=== PATIENT | female | born 2000 | race Caucasian/White ===

== ENCOUNTER 2022-09-27 09:10 | Emergency (ER) | payer SELFPAY ==
[2022-09-27] MEDS ORDERED: Lactated Ringers 1,000 ML IV SCH (09:30)
[2022-09-27] MEDS ORDERED: Ondansetron 4 MG/2 ML SDV IVPUSH ONE (09:31)
[2022-09-27 10:23] LABS: CARBON DIOXIDE,CO2 25.5 mmol/L (21.0-32.0); POTASSIUM,K 3.9 mmol/L (3.5-5.1)
== END 2022-09-27 12:49 | disposition home or self-care (01) ==
LOC: MW.ED 09:10
DX: O21.9 Vomiting of pregnancy, unspecified (principal); O99.511 Diseases of the respiratory system complicating pregnancy, first trimester; J45.909 Unspecified asthma, uncomplicated; Z79.899 Other long term (current) drug therapy; Z3A.01 Less than 8 weeks gestation of pregnancy
CPT/HCPCS: 36415; 80053; 81003; 85025; 96361; 96374; 99284; J2405; J7120

== ENCOUNTER 2022-11-02 13:32 | Emergency (ER) | payer MEDICAID, OTHER ==
[2022-11-02] MEDS ORDERED: Sodium Chloride 0.9% 1,000 ML IV ONE (13:54)
[2022-11-02] MEDS ORDERED: Ondansetron 4 MG/2 ML SDV IVPUSH ONE (14:00)
[2022-11-02 14:42] LABS: CARBON DIOXIDE,CO2 25.5 mmol/L (21.0-32.0); POTASSIUM,K 3.7 mmol/L (3.5-5.1)
[2022-11-02 15:12] LABS: CORONAVIRUS COVID-19 NAA NEGATIVE (NEGATIVE); INFLUENZA A NAA NEGATIVE (NEGATIVE); INFLUENZA B NAA NEGATIVE (NEGATIVE)
== END 2022-11-02 15:36 | disposition home or self-care (01) ==
LOC: MW.ED 13:32
DX: O99.011 Anemia complicating pregnancy, first trimester (principal); O99.511 Diseases of the respiratory system complicating pregnancy, first trimester; J32.9 Chronic sinusitis, unspecified; Z20.822 Contact with and (suspected) exposure to COVID-19; Z3A.11 11 weeks gestation of pregnancy
CPT/HCPCS: 0240U; 36415; 80053; 81003; 85025; 87651; 96361; 96374; 99284; J2405; J7030

== ENCOUNTER 2023-04-07 11:53 | Emergency (ER) | payer BC, MEDICAID ==
[2023-04-07] MEDS ORDERED: Sodium Chloride 0.9% 1,000 ML IV STA ×2 (13:03→13:42)
[2023-04-07] MEDS ORDERED: Metoclopramide 10 MG/2 ML SDV IVPUSH STA (13:04)
[2023-04-07] MEDS ORDERED: diphenhydrAMINE 50 MG/ML SDV IVPUSH STA (13:04)
[2023-04-07 13:22] LABS: APPEARANCE,URINE CLOUDY; BILIRUBIN,URINE NEGATIVE (NEGATIVE); COLOR,URINE YELLOW; GLUCOSE,URINE NEGATIVE (NEGATIVE); KETONES,URINE 15 mg/dL (NEGATIVE); LEUKOCYTE ESTERASE,URINE LARGE (NEGATIVE); NITRITE,URINE NEGATIVE (NEGATIVE); OCCULT BLOOD,URINE NEGATIVE (NEGATIVE); PH,URINE 7.5 (5.0-8.0); PROTEIN,URINE NEGATIVE (NEGATIVE)
[2023-04-07 13:51] LABS: BACTERIA,URINE 3+ (NEGATIVE); EPITHELIAL CELLS,URINE FEW (NONE-FEW); RBC,URINE NONE SEEN (0-2/HPF); WBC,URINE 20-30 (0-5/HPF)
[2023-04-07] MEDS ORDERED: cefTRIAXone 1 GM in Sodium Chloride 0.9% 50 ML IV STA (14:09)
== END 2023-04-07 16:05 | disposition home or self-care (01) ==
LOC: MW.ED 11:53
DX: O21.0 Mild hyperemesis gravidarum (principal); O23.43 Unspecified infection of urinary tract in pregnancy, third trimester; N39.0 Urinary tract infection, site not specified; J45.909 Unspecified asthma, uncomplicated; Z3A.34 34 weeks gestation of pregnancy
CPT/HCPCS: 81001; 87086; 96361; 96365; 96375; 99284; J0696; J1200; J2765; J3490; J7030

== ENCOUNTER 2023-05-12 00:18 | Inpatient (IN) | payer BC ==
[2023-05-12] MEDS ORDERED: Carboprost Tromethamine 250 MCG/1 mL Vial IM PRN (02:43)
[2023-05-12] MEDS ORDERED: Lidocaine 1% 50 ML MDV INJECT PRN (02:43)
[2023-05-12] MEDS ORDERED: Misoprostol 200 MCG Tab PO PRN (02:43)
[2023-05-12] MEDS ORDERED: Water For Irrigation,Sterile 1,000 ML Container IRR PRN (02:43)
[2023-05-12] MEDS ORDERED: Tranexamic Acid IN NACL,ISO-OS 1,000 MG in Premix Bag 1 BAG IV PRN ×2 (02:43)
[2023-05-12] MEDS ORDERED: Sodium Chloride 0.9% 10 ML Syringe FLUSH PRN (02:43)
[2023-05-12] MEDS ORDERED: Ondansetron 4 MG/2 ML SDV IVPUSH PRN (02:43)
[2023-05-12] MEDS ORDERED: Sodium Chloride 0.9% 2.5 ML Syringe FLUSH PRN (02:43)
[2023-05-12] MEDS ORDERED: Misoprostol 25 MCG (1/4 of 100 MCG) Tab VAG PRN (02:43)
[2023-05-12] MEDS ORDERED: Sodium Chloride 0.9% 20 ML SDV IV PRN (02:43)
[2023-05-12] MEDS ORDERED: Methylergonovine 0.2 MG/1 ML Amp IM PRN (02:43)
[2023-05-12] MEDS ORDERED: Terbutaline 1 MG/ML SDV SUBCUT PRN (02:43)
[2023-05-12] MEDS ORDERED: Butorphanol 1 MG/ML SDV IVPUSH PRN (02:43)
[2023-05-12] MEDS ORDERED: Oxytocin/0.9 % Sodium Chloride 30 UNIT/500 ML BAG IV SCH ×2 (02:45)
[2023-05-12] MEDS: Misoprostol 25 MCG (1/4 of 100 MCG) Tab PO SCH ×3 (04:03→15:56)
[2023-05-12 04:26] LABS: HEMATOCRIT 33.3 % (37.0-47.0); HEMOGLOBIN 10.9 g/dL (12.0-16.0); MEAN CORPUSCULAR HEMOGLOBIN 23.6 pg (28.0-32.0); MEAN CORPUSCULAR HGB CONC 32.7 g/dL (32.0-36.0); MEAN CORPUSCULAR VOLUME 72.1 fL (83.0-99.0); MEAN PLATELET VOLUME 9.6 fL (9.4-12.3); PLATELET COUNT,PLT 194 K/uL (150-400); RED BLOOD CELL COUNT 4.62 M/uL (4.10-5.30); WHITE BLOOD CELL COUNT,WBC 9.85 K/uL (3.9-11.3)
[2023-05-12] MEDS ORDERED: ePHEDrine 50 MG/ML SDV IVPUSH PRN ×2 (07:33)
[2023-05-12] MEDS ORDERED: Phenylephrine HCl 0.5 MG/5 ML AMP IVPUSH PRN (07:33)
[2023-05-12] MEDS ORDERED: Ropivacaine HCl/PF 400 MG in Premix Bag 1 BAG EPIDUR SCH (07:45)
[2023-05-12] MEDS: Misoprostol 25 MCG (1/4 of 100 MCG) Tab VAG PRN ×2 (11:06→15:56)
[2023-05-12] MEDS ORDERED: Nalbuphine 10 MG/0.5 ML Syringe IVPUSH PRN ×2 (13:34→17:52)
[2023-05-12] MEDS: Nalbuphine 10 MG/0.5 ML Syringe IVPUSH PRN ×2 (14:08→18:05)
[2023-05-12] MEDS: Lactated Ringers 1,000 ML IV SCH (17:28)
[2023-05-13] MEDS: Lactated Ringers 1,000 ML IV SCH ×2 (08:40→15:30)
[2023-05-13] MEDS ORDERED: Bupivacaine 0.25% 10 ML SDV ONE (17:53)
[2023-05-13] MEDS ORDERED: fentaNYL 100 MCG/2 ML SDV ONE (17:53)
[2023-05-13] MEDS ORDERED: Lanolin 100% Cream 7 GM Tube TOP PRN (20:47)
[2023-05-13] MEDS ORDERED: Acetaminophen/oxyCODONE 325-5 MG Tab PO PRN ×2 (20:47→22:54)
[2023-05-13] MEDS ORDERED: Bisacodyl 10 MG Supp RECTAL PRN (20:47)
[2023-05-13] MEDS ORDERED: diphenhydrAMINE 50 MG/ML SDV IVPUSH PRN ×2 (20:47→22:54)
[2023-05-13] MEDS ORDERED: ceFAZolin 2 GM in Sodium Chloride 0.9% 50 ML IV ONE (20:47)
[2023-05-13] MEDS ORDERED: Oxytocin 10 Units/1 ML SDV IM PRN (20:47)
[2023-05-13] MEDS ORDERED: Misoprostol 200 MCG Tab RECTAL PRN ×2 (20:47)
[2023-05-13] MEDS ORDERED: Methylergonovine 0.2 MG/1 ML Amp IM PRN (20:47)
[2023-05-13] MEDS ORDERED: Citric Acid/Sodium Citrate Solution 30 ML Cup PO ONE (20:47)
[2023-05-13] MEDS ORDERED: Ondansetron 4 MG/2 ML SDV IVPUSH PRN ×3 (20:47→22:54)
[2023-05-13] MEDS ORDERED: Dexamethasone 4 MG/ML 5 ML MDV ONE (20:50)
[2023-05-13] MEDS ORDERED: Bupivacaine 0.5% 10 ML SDV ONE (20:50)
[2023-05-13] MEDS ORDERED: Ketorolac 30 MG/ML SDV ONE (20:50)
[2023-05-13] MEDS ORDERED: Oxytocin 10 Units/1 ML SDV ONE ×2 (20:50→22:06)
[2023-05-13] MEDS ORDERED: Ondansetron 4 MG/2 ML SDV ONE (20:50)
[2023-05-13] MEDS ORDERED: ceFAZolin 1 GM Vial ONE (20:51)
[2023-05-13] MEDS ORDERED: Morphine PF 10 MG/10 ML SDV ONE (20:53)
[2023-05-13] MEDS ORDERED: Water For Injection, Sterile 20 ML ONE (20:53)
[2023-05-13] MEDS ORDERED: Oxytocin/0.9 % Sodium Chloride 30 UNIT/500 ML BAG IV SCH ×2 (21:00)
[2023-05-13] MEDS ORDERED: Lactated Ringers 1,000 ML IV SCH (21:00)
[2023-05-13] MEDS ORDERED: Bupivacaine 0.5% 30 ML SDV ONE (21:01)
[2023-05-13] MEDS ORDERED: Non-Formulary Medication 1 Each (Albuterol Sulfate [Proair Digihaler] 90 MCG Aer.Pw.Bas) PO PRN (21:02)
[2023-05-13] MEDS ORDERED: Lidocaine 2% 5 ML SDV ONE (21:23)
[2023-05-13] MEDS ORDERED: Propofol 200 MG/20 ML SDV ONE (21:33)
[2023-05-13] MEDS ORDERED: Ropivacaine 0.5% 5 MG/ML 30 ML SDV ONE (21:57)
[2023-05-13] MEDS ORDERED: HYDROmorphone 1 MG/ML Syringe IVPUSH PRN (22:54)
[2023-05-13] MEDS ORDERED: fentaNYL 100 MCG/2 ML SDV IVPUSH PRN (22:54)
[2023-05-13] MEDS ORDERED: Metoclopramide 10 MG/2 ML SDV IVPUSH PRN (22:54)
[2023-05-13] MEDS ORDERED: fentaNYL 50 MCG/ML SDV IVPUSH PRN (22:54)
[2023-05-13] MEDS ORDERED: Morphine 2 MG/ML SYRINGE IVPUSH PRN (22:54)
[2023-05-13] MEDS ORDERED: Albuterol 0.083% 2.5 MG/3 ML Neb Soln NEB PRN (22:54)
[2023-05-13] MEDS ORDERED: Naloxone 0.4 MG/ML SDV IVPUSH PRN (22:54)
[2023-05-13] MEDS ORDERED: droPERidol 5 MG/2 ML SDV IVPUSH PRN (22:54)
[2023-05-14] MEDS: Ketorolac 30 MG/ML SDV IVPUSH SCH ×6 (04:44→23:00)
[2023-05-14 07:21] LABS: BASOPHILS ABSOLUTE AUTO 0.03 K/uL (0.00-0.20); BASOPHILS PERCENT AUTO 0.1 % (0.0-1.0); HEMATOCRIT 28.2 % (37.0-47.0); HEMOGLOBIN 9.5 g/dL (12.0-16.0); IMMATURE GRAN ABSOLUTE AUTO 0.12 K/uL (0.00-0.05); IMMATURE GRAN PERCENT AUTO 0.6 % (0.0-0.4); LYMPHOCYTES ABSOLUTE AUTO 0.97 K/uL (1.00-4.80); LYMPHOCYTES PERCENT AUTO 4.6 % (24.0-44.0); MEAN CORPUSCULAR HEMOGLOBIN 24.1 pg (28.0-32.0); MEAN CORPUSCULAR HGB CONC 33.7 g/dL (32.0-36.0); MEAN CORPUSCULAR VOLUME 71.6 fL (83.0-99.0); MEAN PLATELET VOLUME 11.4 fL (9.4-12.3); MONOCYTES ABSOLUTE AUTO 0.39 K/uL (0.00-0.80); MONOCYTES PERCENT AUTO 1.9 % (0.0-8.0); NEUTROPHILS ABSOLUTE AUTO 19.53 K/uL (1.80-7.70); NEUTROPHILS PERCENT AUTO 92.8 % (41.0-71.0); PLATELET COUNT,PLT 175 K/uL (150-400); RED BLOOD CELL COUNT 3.94 M/uL (4.10-5.30); WHITE BLOOD CELL COUNT,WBC 21.04 K/uL (3.9-11.3)
[2023-05-14 08:43] LABS: PH,UMBILICAL VENOUS 7.356 (7.25-7.45)
[2023-05-14] MEDS: Docusate Sodium 100 MG Cap PO SCH ×2 (10:02→23:01)
[2023-05-14] MEDS: Ferrous Sulfate 325 MG Tab PO SCH (18:01)
[2023-05-15] MEDS: Acetaminophen/oxyCODONE 325-5 MG Tab PO PRN ×2 (04:25→23:03)
[2023-05-15] MEDS: Ibuprofen 800 MG Tab PO PRN ×2 (09:09→18:29)
[2023-05-15] MEDS: Prenatal Multivitamin with Calcium/Folic Acid/Iron Tab PO SCH (09:10)
[2023-05-15] MEDS: Ferrous Sulfate 325 MG Tab PO SCH ×3 (09:10→18:25)
[2023-05-15] MEDS: Docusate Sodium 100 MG Cap PO SCH ×3 (09:13→20:44)
[2023-05-16] MEDS: Acetaminophen/oxyCODONE 325-5 MG Tab PO PRN ×2 (06:53→16:52)
[2023-05-16] MEDS: Ferrous Sulfate 325 MG Tab PO SCH ×4 (09:43→18:08)
[2023-05-16] MEDS: Docusate Sodium 100 MG Cap PO SCH ×2 (09:44→20:34)
[2023-05-16] MEDS: Prenatal Multivitamin with Calcium/Folic Acid/Iron Tab PO SCH (09:44)
[2023-05-16] MEDS: Ibuprofen 800 MG Tab PO PRN ×2 (13:34→21:38)
[2023-05-17] MEDS: Acetaminophen/oxyCODONE 325-5 MG Tab PO PRN (01:56)
[2023-05-17] MEDS: Ibuprofen 800 MG Tab PO PRN ×2 (08:03→17:50)
[2023-05-17] MEDS: Prenatal Multivitamin with Calcium/Folic Acid/Iron Tab PO SCH (10:23)
[2023-05-17] MEDS: Docusate Sodium 100 MG Cap PO SCH ×2 (10:23→20:29)
[2023-05-17] MEDS: Ferrous Sulfate 325 MG Tab PO SCH ×3 (10:23→17:50)
== END 2023-05-17 21:55 | disposition home or self-care (01) | DRG 540 ==
LOC: MW.OBCHECK 00:18 → MW.OB 00:20 → MW.OBCHECK 02:43 → MW.OB 02:43 → OBSVTOIN 05-13 21:34 → MW.OB 05-14 03:01
PROVIDERS: ADMIT Obstetrics & Gynecology Obstetrics; ATTEND Obstetrics & Gynecology Obstetrics
PROC: 10D00Z1 Extraction of Products of Conception, Low, Open Approach (ICD-10-PCS; principal; 2023-05-13)
PROC: 3E0R3BZ Introduction of Anesthetic Agent into Spinal Canal, Percutaneous Approach (ICD-10-PCS; 2023-05-13)
PROC: 00HU33Z Insertion of Infusion Device into Spinal Canal, Percutaneous Approach (ICD-10-PCS; 2023-05-13)
PROC: 3E0P7VZ Introduction of Hormone into Female Reproductive, Via Natural or Artificial Opening (ICD-10-PCS; 2023-05-13)
PROC: 3E033VJ Introduction of Other Hormone into Peripheral Vein, Percutaneous Approach (ICD-10-PCS; 2023-05-13)
DX: O76 Abnormality in fetal heart rate and rhythm complicating labor and delivery (principal); Z3A.39 39 weeks gestation of pregnancy; Z37.0 Single live birth; O99.02 Anemia complicating childbirth; O62.0 Primary inadequate contractions; O77.0 Labor and delivery complicated by meconium in amniotic fluid; O32.3XX0 Maternal care for face, brow and chin presentation, not applicable or unspecified; O99.52 Diseases of the respiratory system complicating childbirth; J45.909 Unspecified asthma, uncomplicated
CPT/HCPCS: 01967; 36415; 51702; 59025; 82803; 84112; 85025; 85027; 86592; 86850; 86900; 86901; A9270-GY; J0690; J1100; J1885; J2274; J2300; J2405; J2590; J2704; J2795; J3010; J3490; J7120

== ENCOUNTER 2023-09-14 15:48 | Emergency (ER) | payer BC, MEDICAID ==
[2023-09-14] MEDS: Alum Hydro/Mag Hydro/Simeth XS 15 ML, Lidocaine 2% 5 ML PO ONE (16:55)
[2023-09-14 16:56] LABS: APPEARANCE,URINE SLT CLOUDY; BILIRUBIN,URINE NEGATIVE (NEGATIVE); COLOR,URINE YELLOW; GLUCOSE,URINE NEGATIVE (NEGATIVE); KETONES,URINE NEGATIVE (NEGATIVE); LEUKOCYTE ESTERASE,URINE MODERATE (NEGATIVE); NITRITE,URINE NEGATIVE (NEGATIVE); OCCULT BLOOD,URINE NEGATIVE (NEGATIVE); PROTEIN,URINE NEGATIVE (NEGATIVE); UROBILINOGEN,URINE 0.2 EU/dL (<2.0)
[2023-09-14 16:56] LABS: BASOPHILS ABSOLUTE AUTO 0.05 K/uL (0.00-0.20); BASOPHILS PERCENT AUTO 0.7 % (0.0-1.0); EOSINOPHILS ABSOLUTE AUTO 0.47 K/uL (0.00-0.45); EOSINOPHILS PERCENT AUTO 6.4 % (0.0-6.0); HEMATOCRIT 36.8 % (37.0-47.0); HEMOGLOBIN 11.8 g/dL (12.0-16.0); LYMPHOCYTES ABSOLUTE AUTO 3.66 K/uL (1.00-4.80); LYMPHOCYTES PERCENT AUTO 50.1 % (24.0-44.0); MEAN CORPUSCULAR HEMOGLOBIN 21.3 pg (28.0-32.0); MEAN CORPUSCULAR HGB CONC 32.1 g/dL (32.0-36.0); MEAN CORPUSCULAR VOLUME 66.4 fL (83.0-99.0); MEAN PLATELET VOLUME 9.1 fL (9.4-12.3); MONOCYTES ABSOLUTE AUTO 0.51 K/uL (0.00-0.80); NEUTROPHILS ABSOLUTE AUTO 2.61 K/uL (1.80-7.70); NEUTROPHILS PERCENT AUTO 35.8 % (41.0-71.0); PLATELET COUNT,PLT 328 K/uL (150-400); RED BLOOD CELL COUNT 5.54 M/uL (4.10-5.30)
[2023-09-14] MEDS: Sodium Chloride 0.9% 1,000 ML IV SCH (17:00)
[2023-09-14 17:09] LABS: BACTERIA,URINE RARE (NEGATIVE); EPITHELIAL CELLS,URINE FEW (NONE-FEW); RBC,URINE 0-2 (0-2/HPF)
[2023-09-14 17:33] LABS: ALBUMIN 3.9 g/dL (3.4-5.0); BILIRUBIN TOTAL 0.3 mg/dL (0.2-1.0); CALCIUM 9.2 mg/dL (8.5-10.1); CARBON DIOXIDE,CO2 22.6 mmol/L (21.0-32.0); CREATININE 0.9 mg/dL (0.6-1.0); EST CRCL DRUG DOSING (CG) 70.43 mL/min; POTASSIUM,K 3.9 mmol/L (3.5-5.1)
== END 2023-09-14 18:00 | disposition home or self-care (01) ==
LOC: MW.ED 15:48
DX: N39.0 Urinary tract infection, site not specified (principal); Z79.899 Other long term (current) drug therapy
CPT/HCPCS: 36415; 80053; 81001; 81025; 83690; 85025; 87086; 96360; 99284; A9270; J7030; 99283